=== PATIENT | female | born 1970 | race Caucasian/White ===

== ENCOUNTER 2018-01-23 09:12 | Emergency (ER) | payer BC, SELFPAY ==
[~2018-01-23] VITALS: Ht 163.8 cm; Wt 64.8 kg
[2018-01-23 09:13] VITALS: BP 135/96
[2018-01-23] MEDS ORDERED: KETOROLAC 30 MG/1 ML ONE (10:11)
[2018-01-23] MEDS ORDERED: DIAZEPAM 5 MG TABLET ONE (10:11)
[2018-01-23] MEDS ORDERED: KETOROLAC 60 MG/2 ML IM ONE (10:30)
[2018-01-23] MEDS ORDERED: DIAZEPAM 5 MG TABLET PO ONE (10:30)
== END 2018-01-23 11:18 | disposition home or self-care (01) ==
LOC: ED 11:12
DX: M54.5 Low back pain (principal)
CPT/HCPCS: 72110; 96372; 99284; J1885